=== PATIENT | female | born 1970 | race Caucasian/White ===

== ENCOUNTER 2021-09-11 07:22 | Observation (INO) ==
--- NOTE | 2021-08-07 10:04 | PAT Medication Instructions ---
Medication Instructions Date of Service August 07, 2021 Home Medications acetaminophen 500 mg tablet 1,000 mg PO BID aspirin 81 mg capsule 81 mg PO QAM cholecalciferol (vitamin D3) 50 mcg (2,000 unit) tablet (Vitamin D3) 50 mcg PO QAM meloxicam 15 mg tablet 15 mg PO QPM omeprazole 20 mg tablet,delayed release 20 mg PO QAM ASK your surgeon for instructions meloxicam 15 mg tablet 15 mg PO QPM DO NOT take the morning of surgery cholecalciferol (vitamin D3) 50 mcg (2,000 unit) tablet (Vitamin D3) 50 mcg PO QAM Take morning of surgery With a small sip of water, OTHERWISE NOTHING TO EAT OR DRINK AFTER MIDNIGHT: acetaminophen 500 mg tablet 1,000 mg PO BID aspirin 81 mg capsule 81 mg PO QAM (unless surgeon directed otherwise) omeprazole 20 mg tablet,delayed release 20 mg PO QAM Take evening before surgery acetaminophen 500 mg tablet 1,000 mg PO BID Other Notes If you have any questions please call us at [phone] or [phone] or [phone] or [phone]
--- NOTE | 2021-08-12 11:10 | Anesthesiology Consultation ---
Date of Service August 12, 2021 Assessment & Plan (1) Encounter for pre-operative examination: COVID screening: Per assessment on 08/12: No known COVID-19 positive contacts or current COVID-19 related symptoms. Travel screen- negative x 2+ weeks. Patient vaccinated. Surgeon arranging preop COVID testing. Awaiting results. Chart Review Chart Review: Acceptable Risk for Surgery and Patient seen in Pre Admission Testing Teaching & Discussion Pre-Anesthesia Teaching/Discussion Notes: Instructed NPO after midnight before surgery,except medications with 15 cc of water. Medication instructions provided according to the PAT guidelines. History Surgery Operation Date: 09/11/21 07:15 Proposed Procedures p Left Total Knee Arthroplasty - Albert King DO Height/Weight Height: 5 ft Weight: 77.2 kg Allergies Allergy/AdvReac Type Severity Reaction Status Date / Time Vitamin D Allergy Hives Uncoded 08/12/21 11:27 (with higher doses, tolerates lower doses) Medications Home Medications Medication Instructions Recorded Confirmed Last Taken acetaminophen 500 mg tablet 1,000 mg PO BID 08/06/21 08/06/21 Unknown aspirin 81 mg capsule 81 mg PO QAM 08/06/21 08/06/21 Unknown cholecalciferol (vitamin D3) 50 50 mcg PO QAM 08/06/21 08/06/21 Unknown mcg (2,000 unit) tablet (Vitamin D3) meloxicam 15 mg tablet 15 mg PO QPM 08/06/21 08/06/21 Unknown omeprazole 20 mg tablet,delayed 20 mg PO QAM 08/06/21 08/06/21 Unknown release Past Medical History Medical History (Updated 08/12/21 @ 11:08 by Soila Nieto) GERD (gastroesophageal reflux disease) History of COVID-19 02/2021 - stuffy nose/congestion at the time > resolved Hx of renal calculi Exercise / Class Metabolic Activity II 4-5 Yardwork/Stairs/Walk up hill Past Surgical History Surgical History Hx of hysterectomy partial Hx of wisdom tooth extraction Past Anesthesia History No Hx of Anesthesia Complications and No Family Hx of Anesthesia Complications History of PONV No Hx of PONV and Hx of Motion Sickness (Occasional) Social History Smoking Status: Former smoker Do You Dip or Chew Tobacco: No Smoking End Date: Quit 30 Hx Alcohol Use: Yes alcohol intake frequency: a few times a month Hx Substance Use: No substance use type: does not use Review of Systems Patient denies chest pain, shortness of breath, dyspnea on exertion, fever, chills, cough, wheezing, palpitations. Physical Exam Vital Signs VITALS BP 121/84 P 60 TEMP 98.2 SP02 99%RA RESP 16 PHYSICAL Full cervical extension range of motion. Full TMJ range of motion. TMD 3 finger breaths Mallampati Score 1 Dentition: root canal repair (right upper molar), missing molars Lungs: clear throughout to auscultation Cardiac: regular rate and rhythm, no murmurs noted Spine: normal Carotid arteries: negative bruit Extremities: no edema Lab Results Anesthesia Preop Results Results Anesthesia Widget: WBC 6.21 K/uL (4.8-10.8) 08/12/21 Hgb 13.4 g/dL (12.0-16.0) 08/12/21 Hct 41.3 % (37-47) 08/12/21 Plt 423 K/uL (130-400) H 08/12/21 Na 141 mmol/L (136-145) 08/12/21 K 4.1 mmol/L (3.5-5.1) 08/12/21 Cl 105 mmol/L (98-107) 08/12/21 CO2 30 mmol/L (21-32) 08/12/21 BUN 19 mg/dl (6-23) 08/12/21 Creat 0.78 mg/dl (0.6-1.2) 08/12/21 Glucose Level 92 mg/dl (70-99(Fasting)) 08/12/21 PT 11.1 Seconds (9.0-12.0) 08/12/21 PTT 29.6 Seconds (21.0-31.0) 08/12/21 INR 1.0 (0.9-1.1) 08/12/21 HA1c 5.6 % (4.5-5.6) 08/12/21 Urine Color Yellow 08/12/21 Urine Appearance Clear (Clear) 08/12/21 Urine pH 6.5 (4.5-7.5) 08/12/21 Urine Specific [place] 1.011 (1.000-1.030) 08/12/21 Urine Protein Negative (Negative) 08/12/21 Urine Glucose (UA) Negative (Negative) 08/12/21 Urine Ketones Negative (Negative) 08/12/21 Urine Blood Negative (Negative) 08/12/21 Urine Nitrite Negative (Negative) 08/12/21 Urine Bilirubin Negative (Negative) 08/12/21 Urine Urobilinogen Negative (Negative) 08/12/21 Urine Leukocyte Esterase Negative (Negative) 08/12/21 Blood Type O Positive 08/12/21 Antibody Screen NEGATIVE 08/12/21 Testing Electrocardiogram Date: 08/12/21 Findings: + NSR @ (61) Chest X-Ray Date: 08/12/21 FINDINGS: Frontal and lateral radiographs of the chest demonstrate the cardiomediastinal silhouette to be within normal limits. The lungs are clear of alveolar opacities. There is no evidence for effusion bilaterally. There is no evidence for vascular congestion. There is no acute osseous pathology. IMPRESSION: No acute cardiopulmonary disease.
--- NOTE | 2021-08-23 08:44 | History & Physical Report ---
Date of Service August 23, 2021 date of surgery: 09/11/21 Procedure: Left Total Knee Arthroplasty Surgeon: Albert King Assessment & Plan (1) Arthritis of knee, left: Plan: she would like to proceed with a patient matched Simone left TKA at [facility]. we discussed poss OPJ vs inpatient, she does live alone and would prefer to stay overnight. will then make arrangements to stay at her daughters house for a week or so after. ASA 81mg po bid x 1 month. The risks and benefits have been discussed including, but not limited to, risk of infection, nerve injury, stiffness, loss of motion, failure to improve, etc. Reasonable outcomes and options of treatment were discussed. An explanation of appropriate alternatives to the procedure that may be advantageous were discussed and their risks and benefits, as well as the risks and benefits of not proceeding with treatment. I offered to answer any additional inquiries concerning the treatment involved. All the patient's questions were answered. The patient is agreeable, understanding of the treatment plan and alternatives, and wishes to proceed with the treatment plan. History of Present Illness Chief Complaint: left knee pain Primary Care Provider: NO PCP Torie is a 51 year old who complains of left knee pain, presents for pre-op evaluation prior to a left total knee replacement by Dr King at [facility]. she complains of pain, decreased range of motion, instability and stiffness in her left knee. Currently the patient states that the symptoms are moderate-severe and is described as aching, sharp and throbbing. Her symptoms are aggravated by ascending stairs, daily activities, first steps while awake walking. Prior NSAIDs include Mobic and IBU. she has been treated with previous Durolane (visco) injections in the past without much relief. she has had Pt and sometimes uses a knee brace. Allergies Allergy/AdvReac Type Severity Reaction Status Date / Time Vitamin D Allergy Hives Uncoded 08/12/21 11:27 (with higher doses, tolerates lower doses) Home Medications Medication Instructions Recorded Confirmed Type acetaminophen 500 mg tablet 1,000 mg PO BID 08/06/21 08/06/21 History aspirin 81 mg capsule 81 mg PO QAM 08/06/21 08/06/21 History cholecalciferol (vitamin D3) 50 50 mcg PO QAM 08/06/21 08/06/21 History mcg (2,000 unit) tablet (Vitamin D3) meloxicam 15 mg tablet 15 mg PO QPM 08/06/21 08/06/21 History omeprazole 20 mg tablet,delayed 20 mg PO QAM 08/06/21 08/06/21 History release Past Med/Surg History Medical History GERD (gastroesophageal reflux disease) History of COVID-19 02/2021 - stuffy nose/congestion at the time > resolved Hx of renal calculi Surgical History Hx of hysterectomy partial Hx of wisdom tooth extraction Social History Smoking Status: Former smoker Second Hand Exposure: No; Hx Alcohol Use: Yes Hx Substance Use: No Preferred Language: Chinese Communication Ability: Effective Whip Operator Required: No Beliefs That Will Affect Care: None Current Living Situation: Alone Feels Safe at Home: Yes Assistive Devices: Glasses Review of Systems Review of Systems: All systems reviewed & are unremarkable except as noted in HPI & below Constitutional: no fever, no chills and no sweats Respiratory: no cough and no dyspnea Cardiovascular: no chest pain, no dyspnea and no orthopnea Gastrointestinal: no abdominal pain, no nausea and no vomiting Musculoskeletal: as per Subjective / HPI Physical Exam Physical Exam: HT: 5 ft WT: 77.2 kg Constitutional: WD/WN, vitals as above no acute distress Respiratory: normal respiratory effort, lungs clear to auscultation no respiratory distress, no labored breathing and does not use accessory muscles Cardiovascular: RRR, no murmur, no edema Gastrointestinal (Abdomen): normal bowel sounds, soft, nontender, no hepatosplenomegaly Musculoskeletal: Knee: + knee abnormal to inspection (LEFT KNEE ), + effusion (+1 effusion), + limited ROM of knee (ROM 0/3/110), + knee ROM with crepitation, + joint line tenderness (medial joint line) and + Samantha's sign positive; no deformity, no skin erythema, no ecchymosis, no valgus laxity, no varus laxity, anterior drawer test negative, José Miguel's sign negative and pivot shift test negative Results & Data Results & Data ([facility]) Diagnostic Findings Left Knee X-ray: left knee series confirm advanced degenerative changes to the left knee, greatest medial compartments and patellofemoral joint, showing joint space narrowing, osteophyte formation and subchondral sclerosis. no acute bony pathology noted.
[~2021-09-11 07:22] MED LIST: ACETAMINOPHEN 500 MG TAB PO SCH; BUPIVACAINE 0.5 % 5 MG/1 ML PF 10ML VIAL ONE; CeleBREX 200 MG CAP PO SCH; FAMOTIDINE 20 MG TAB PO SCH; GABAPENTIN 900 MG DOSE PO SCH; LR 500ML BOLUS, THEN 15ML/HR IV SCH; METOCLOPRAMIDE HCL 10 MG TABLET PO SCH; ROPIVACAINE 0.5% 5 MG/ML 30 ML VIAL ONE; ROPIVACAINE 0.5% HCL/PF 150 MG, BUPIVACAINE 0.75% MPF 20 ML, EPINEPHrine 30MG/30ML (OR ... INFIL SCH; TRANEXAMIC ACID 1,000 MG **IV Intra-op IV SCH; TRANEXAMIC ACID 1,000 MG **IV Pre-op IV SCH; ceFAZolin 2000MG 2,000 MG/15 ML SYR IV SCH; dexAMETHasone 4 MG TAB PO SCH
[2021-09-11] MEDS ORDERED: PROPOFOL IV EMULSION 10 MG/ML 20 ML VIAL IV ONE ×2 (07:50→10:28)
[2021-09-11] MEDS ORDERED: MIDAZOLAM HCL 1 MG/ML 2ML VIAL ONE (07:50)
--- NOTE | 2021-09-11 08:35 | History & Physical Bridge Note ---
Date of Service September 11, 2021 History & Physical Bridge Note I have examined the patient, reviewed the History & Physical and in the interval since the performance of the History & Physical I have noted the following changes of clinical significance: no changes noted
[2021-09-11] MEDS ORDERED: ORTHO JOINT ANESTHETIC ONE (09:14)
[2021-09-11] MEDS ORDERED: HYDROmorphone INJ 1 MG/ML SYRINGE IV PRN ×2 (09:22→11:34)
[2021-09-11] MEDS ORDERED: ATROPINE SULFATE 0.1 MG/ML 10ML SYR IV PRN (09:22)
[2021-09-11] MEDS ORDERED: ONDANSETRON INJ 2 MG/ML 2 ML VIAL IV PRN ×2 (09:22→11:34)
[2021-09-11] MEDS ORDERED: ePHEDrine sulfate 50 MG/ML AMP IV PRN (09:22)
[2021-09-11] MEDS ORDERED: KETOROLAC 30 MG/ML VIAL IV PRN (09:22)
[2021-09-11] MEDS ORDERED: ONDANSETRON INJ 2 MG/ML 2 ML VIAL ONE (10:08)
[2021-09-11] MEDS ORDERED: fentaNYL citrate 100 MCG/2 ML VIAL ONE (10:08)
--- NOTE | 2021-09-11 10:54 | Operative Report ---
Post Operative Report Pre & Post Diagnosis Operation Date: 09/11/21 09:20 Pre-Op Diagnosis: Osteoarthritis of Left Knee Post-Op Diagnosis: Osteoarthritis of Left Knee I identified the patient and participated in the time-out.: Yes Procedure Operation Date: 09/11/21 09:20 Actual Procedures p Left Total Knee Arthroplasty(Left) utilizing Simone [employer] persona size 5 femur narrow tibia D polyten patella 28 oval- Albert King DO Surgeon Albert King DO Survey Supervisor CECILIO Foster Estimated Blood Loss 5 Findings Consistent with Post-Op Diagnosis Patient presents with severe end-stage tricompartmental degenerative joint disease left knee nonresponse to conservative management patient had end-stage tricompartmental DJD with eburnated [id number] 10 degree flexion contracture varus alignment subchondral cystic changes marginal osteophytes and moderate to large effusion Specimens Bone and cartilage Drains Medium bore Hemovac Anesthesia Type MAC Spinal Regional Complications none Disposition Accompanied Patient To Recovery: No Disposition: Recovery Room Indications Patient presents with severe end-stage DJD no response to conservative management occluding physical therapy anti-inflammatories relative rest activity modification corticosteroid injection viscosupplementation above intraoperative findings were noted Description of Procedure After proper prepping and draping of the left lower extremity anterior midline incision was made over the region of the extensor extensor mechanism after meticulous hemostasis was obtained and maintained in subcutaneous tissues a medial parapatellar incision was made The patella was subluxed lateralward the medial lateral gutter were cleaned from any hypertrophic synovitis and scar tissue of the distal femoral block was placed and the distal femoral osteotomy cut was made subsequently the chamfers anterior and posterior osteotomy cuts were made utilizing the 4-in-1 block the tibia was subsequently subluxed anteriorward medial and ateral meniscal remnants were excised in their entirety remnants of the anterior and posterior cruciate ligaments were excised in their entirety excellent exposure of the proximal tibia was obtained the tibial osteotomy guide was placed on the proximal tibial osteotomy cut was made once again the knee was irrigated with copious amounts of sterile saline solution the patella was subsequently everted lateralward thickened scar tissue around the patella was removed the patella was subsequently cut utilizing a freehand technique and was drilled prepared for final preparation and placement of patella socially flexion-extension gaps were checked and the equal and symmetric trials were placed to the appropriate femoral and tibial trials with poly-spacer being placed for equal flexion and extension gaps and full range of motion including extension to 0 and flexion to 140 the trial components after having been taken to recovery range of motion was subsequently removed meticulous hemostasis was obtained and maintained subsequently a knee block injection of joint cocktail including ropivacaine 0.5% 150 mg. Bupivacaine 0.5% epinephrine 1-200,030 mL's toradol 30 mg dexamethasone 4 mg ketamine 10 mg clonidine 100 micrograms normal saline solution 30 mg was infiltrated into the soft tissues of the posterior knee medial lateral gutters and periosteal synovium special attention was paid to protect neurovascular structures at all times subsequently trial components having been removed the knee was irrigated with sterile saline solution. debris was removed the proximal tibia was subsequently prepared and was made ready for the placement of the tibial component tibial component was a lso cemented and tamped into position the femoral component was subsequently placed and cemented in the position the patellar component was subsequently cemented in position because hemostasis once again obtained and maintained wound having been thoroughly irrigated with debridement and debridement lavage was performed as well as a medial parapatellar incision closed with #1 Vicryl in interrupted fashion subcutaneous was closed with #2 Vicryl skin was closed with skin clips. PA-C was necessary for prepping and drapping as well as wound closure of deep fascia Sub cutaneous tissue and skin and was necessary for the case. A sterile compressive dressing was placed patient was taken to recovery in stable condition of report dictated by Fernando I attest to the content of the Intraoperative Record and any orders documented therein. Any exceptions are noted below.Due to the complex nature of the procedure, the entire surgery was performed with the operational assistance of CECILIO Foster. The embroidery assistant, under direct supervision, was involved in the actual performance of all aspects of the surgical procedure including hemostasis, tissue retraction and incision, instrument management, patient positioning, and wound closure. I attest to the content of the Intraoperative Record and any orders documented therein. Any exceptions are noted below.
[2021-09-11] MEDS ORDERED: NALOXONE HCL 0.4 MG/1 ML VIAL/CARP IV PRN (11:34)
[2021-09-11] MEDS ORDERED: diphenhydrAMINE Capsule 25 MG CAP PO PRN (11:34)
[2021-09-11] MEDS ORDERED: MAGNESIUM HYDROXIDE SUSP 30 ML UDC PO PRN (11:34)
[2021-09-11] MEDS ORDERED: METOCLOPRAMIDE HCL INJ 5 MG/ML 2 ML VIAL IV PRN (11:34)
[2021-09-11] MEDS ORDERED: oxyCODONE HCL IR 5 MG TAB (IMMEDIATE RELEASE) PO PRN (11:34)
[2021-09-11] MEDS ORDERED: bisacodyL 10 MG SUPP PR PRN (11:34)
--- NOTE | 2021-09-11 12:14 | XRay Report ---
XR knee LT 1 or 2V routine CLINICAL HISTORY: Surgical Post Op TECHNIQUE: 2 views of the left knee were obtained. Comparison: None available at the time of this dictation. FINDINGS: Patient is status post total knee arthroplasty with expected postsurgical changes including soft tiss ue swelling and subcutaneous emphysema. No periarticular lucency or hardware fracture is seen. Joint spaces are well-preserved. No joint effusion is seen. No soft tissue abnormality is seen. IMPRESSION: No evidence of acute osseous injury. ACT 112: Negative or not required by law. Electronically signed by: Jhonny Muñoz M.D. 09/11/2021 12:13 PM
--- NOTE | 2021-09-11 12:48 | Hospitalist Consultation ---
Date of Consultation September 11, 2021 Assessment & Plan (1) Arthritis of knee, left: Nahomi is a 51-year-old female with a history of GERD who is status post TKA of the left knee. Hemodynamically stable, normotensive, doing well. May electively check labs in the morning, appears clinically stable for discharge at this time Left knee arthritis s/p total knee arthroplasty 09/11 DVT prophylaxis, pain control, ambulation recommendations per primary team Pain adequately controlled at this time with Tylenol/Toradol. Has not needed hydromorphone for breakthrough. Received perioperative cefazolin Normotensive postoperatively, heart rate normal GERD May continue PPI daily for stress prophylaxis, patient has intermittent without persistent symptoms When returning home recommend trialing Pepcid 20 mg twice daily as needed rather than PPI as needed No signs of bleeding, no dysphagia Vitamin D deficiency Continue vitamin D3 5000iu daily DVT prophylaxis: Per primary team Diet: Regular Disposition: Medical surgical (2) GERD (gastroesophageal reflux disease): History of Present Illness Reason for Consultation: Postoperative management Attending Physician: Albert King, History of Present Illness Nahomi is a 51-year-old female with a past medical history of left knee arthritis who is seen status post left TKA. Medicine's been consulted for postoperative management of underlying medical conditions. History of GERD, vitamin D deficiency, borderline hyperglycemia/impaired fasting glucose, arthritis. Medications as reviewed below. EKG reviewed, normal sinus rhythm with QTC 414. Denies hx of heart disease, lung disease, stroke, blood clots. No nausea/vomiting No shortness of breath or chest pain Left knee is still numb from surgery, does have a little tingling her toes but is slowly fading after transfer from recovery. Denies pain with inspiration Denies palpitations Endorses GERD to set off by sweet foods, no epigastric pain at present. Reports she only uses her omeprazole as needed at home, has never tried Prilosec as needed Medical History: Reviewed Medications: Reviewed Surgical History: Reviewed Allergies: Reviewed. High dose vitamin D with hives Social History: No tobacco use, rare social alcohol use, no MM use Code Status: Full Code. Yarelis and Susy are daughters, joint DM in an emergencyu Allergies Allergy/AdvReac Type Severity Reaction Status Date / Time Vitamin D Allergy Hives Uncoded 09/11/21 07:50 (with higher doses, tolerates lower doses) Home Medications Medication Instructions Recorded Confirmed Type acetaminophen 500 mg tablet 1,000 mg PO BID 08/06/21 09/11/21 History aspirin 81 mg capsule 81 mg PO QAM 08/06/21 09/11/21 History cholecalciferol (vitamin D3) 50 50 mcg PO QAM 08/06/21 09/11/21 History mcg (2,000 unit) tablet (Vitamin D3) meloxicam 15 mg tablet 15 mg PO QPM 08/06/21 09/11/21 History omeprazole 20 mg tablet,delayed 20 mg PO QAM 08/06/21 09/11/21 History release Patient History Medical History GERD (gastroesophageal reflux disease) History of COVID-19 02/2021 - stuffy nose/congestion at the time > resolved Hx of renal calculi Surgical History Hx of hysterectomy partial Hx of wisdom tooth extraction Social History Smoking Status: Former smoker Smoking End Date: Quit 30; Second Hand Exposure: No; Do You Dip or Chew Tobacco: No; Tobacco Cessation Education Requested by Patient: No Hx Alcohol Use: Yes Hx Substance Use: No Preferred Language: Faroese Communication Ability: Effective Beta Tester Required: No Beliefs That Will Affect Care: None Current Living Situation: Alone Other Information That Helps Us Care for You: No Feels Safe at Home: Yes Safety Concerns: Feels Safe At This Time Assistive Devices: Glasses Review of Systems Review of Systems: All systems reviewed & are unremarkable except as noted in Subjective Physical Exam Physical Exam: General: A&Ox3. NAD. Cooperative. HEENT: Atraumatic, normocephalic. Vision and hearing grossly intact. Pupils equal and reactive to light. Pulm: CTAB A&P. -wheezes, -rales, -rhonchi. Symmetrical chest rise. No increased work of breathing. No respiratory distress. Cardiac: RRR, -mrg. Radial pulses intact and symmetrical. Abdominal: Nontender, nondistended, soft. BS present. Extremities: Left knee in postsurgical dressing and wrap with overlying ice pack, drain intact draining sanguinous material. Sensation soft touch intact in toes bilaterally. Cap refill brisk in hallux bilaterally. PT pulse intact bilaterally. Results & Data Results & Data ([facility]) Vital Signs (Past 12 Hours) Vital Signs Temp Pulse Pulse Resp BP Pulse Ox O2 Del Method 09/11/21 12:10 36.7 C 81 13 125/77 94 Oxymask 09/11/21 12:00 86 19 130/84 94 Oxymask 09/11/21 11:50 90 19 116/90 93 Oxymask 09/11/21 11:40 91 H 15 130/82 93 Oxymask 09/11/21 11:31 36.8 C 99 H 22 139/91 94 Oxymask 09/11/21 07:53 36.8 C 88 20 129/89 95 Room Air O2 Flow Rate 09/11/21 12:10 2 09/11/21 12:00 5 09/11/21 11:50 5 09/11/21 11:40 5 09/11/21 11:31 5 09/11/21 07:53 PG Care Time/CCT Total # of Minutes Spent Total Time Spent with Patient: Total time spent is greater than 50% in coordination of care (as documented) at patient's floor/unit and/or counseling patient: Coding Level of Care Code 58223 Inpt Consult Level 3 Diagnoses Arthritis of knee, left M17.12 GERD (gastroesophageal reflux disease) K21.9
[2021-09-11] MEDS: SODIUM CHLORIDE 0.9% 1000ML 1,000 ML IV SCH ×2 (13:00→21:38)
--- NOTE | 2021-09-11 13:05 | Anesthesiology Progress Note ---
Date of Service September 11, 2021 Anesthesia Post Procedure Vital Signs Vital Signs: Temp Pulse Pulse Resp BP Pulse Ox O2 Del Method 09/11/21 12:59 94 Room Air 09/11/21 12:55 36.8 C 82 16 121/86 96 Nasal Cannula 09/11/21 12:25 36.8 C 81 16 132/83 94 Room Air 09/11/21 12:10 36.7 C 81 13 125/77 94 Oxymask 09/11/21 12:00 86 19 130/84 94 Oxymask 09/11/21 11:50 90 19 116/90 93 Oxymask 09/11/21 11:40 91 H 15 130/82 93 Oxymask 09/11/21 11:31 36.8 C 99 H 22 139/91 94 Oxymask 09/11/21 07:53 36.8 C 88 20 129/89 95 Room Air O2 Flow Rate 09/11/21 12:59 09/11/21 12:55 2 09/11/21 12:25 09/11/21 12:10 2 09/11/21 12:00 5 09/11/21 11:50 5 09/11/21 11:40 5 09/11/21 11:31 5 09/11/21 07:53 Pain Intensity Left Knee: Pain Intensity: 8 Transfer of Care Handoff Completed per policy Notes Mental Status: alert / awake / arousable Patient Amnestic to Procedure: Yes Nausea / Vomiting: adequately controlled Pain: adequately controlled Airway Patency, RR, SpO2: stable & adequate BP & HR: stable & adequate Hydration State: stable & adequate Neuraxial Anesthesia: was administered and sensory block is resolving Anesthetic Complications: no major complications apparent
[2021-09-11] MEDS: KETOROLAC TROMETHAMINE 15 MG/ML VIAL IV SCH ×2 (13:53→19:07)
[2021-09-11] MEDS: ACETAMINOPHEN 500 MG TAB PO SCH ×2 (13:55→21:41)
[2021-09-11] MEDS: ceFAZolin 2000MG 2,000 MG/15 ML SYR IV SCH (18:25)
[2021-09-11] MEDS: DOCUSATE SODIUM 100 MG CAP PO SCH (19:08)
[2021-09-11] MEDS: ASPIRIN 81 MG ECTAB PO SCH (19:09)
[2021-09-11] MEDS ORDERED: SENNA 8.6 MG TAB PO SCH (21:00)
[2021-09-12] MEDS: KETOROLAC TROMETHAMINE 15 MG/ML VIAL IV SCH ×2 (00:07→06:05)
[2021-09-12] MEDS: ceFAZolin 2000MG 2,000 MG/15 ML SYR IV SCH (04:15)
[2021-09-12] MEDS: ACETAMINOPHEN 500 MG TAB PO SCH (06:05)
--- NOTE | 2021-09-12 07:23 | Orthopedic Progress Note ---
Date of Service September 12, 2021 Assessment & Plan (1) Arthritis of knee, left: Plan: POD #1 s/p left TKA pt/ot dvt proph with JIMY/SCD/ASA plan for d/c home with OPPT Admission and Anticipated Discharge Date Admission Date: September 11, 2021 Subjective POD #1 s/p Left TKA Review of Systems Constitutional: no fever, no chills and no sweats Respiratory: no cough and no dyspnea Cardiovascular: no chest pain and no dyspnea Gastrointestinal: no abdominal pain, no nausea and no vomiting Physical Exam Physical Exam: Vital Signs Temp 36.6 C 09/12/21 04:00 Pulse 72 09/12/21 04:00 Resp 18 09/12/21 04:00 BP 126/80 09/12/21 04:00 Pulse Ox 96 09/12/21 04:00 O2 Del Method 09/12/21 04:00 O2 Flow Rate 2 09/11/21 12:55 Intake & Output 09/11/21 09/12/21 09/12/21 18:59 06:59 18:59 Intake Total 1600 / 3200 1600 / 3200 Output Total 1580 / 3330 1750 / 3330 Balance 20 / -130 -150 / -130 Weight 78.3 kg Intake: IV 200 / 1200 1000 / 1200 Lactated Ringe r's 1,000 ml @ 15 0 / 0 mls/hr IV .Q24 H ONELIA Rx#: [id number] Sodium Chlorid e 0.9% 1000ML 1, 1000 / 1000 000 ml @ 100 m ls/hr IV .Q10H ONELIA Rx#:[id number] Tranexamic Aci d / 0.7% NaCl 1, 200 / 200 000 mg In 100 ml @ 600 mls/hr IV TODAY@0600 ONELIA Rx#:[id number] IV Perioperative 1100 / 1100 Oral 300 / 900 600 / 900 Output: Urine 1550 / 3150 1600 / 3150 Estimated Blood Loss 5 / 5 Drain Output 25 / 175 150 / 175 Left Knee 25 / 175 150 / 175 Other: # Unmeasured Voi ds 1 Weight Measureme nt Method Standing Scale Musculoskeletal: Left Leg: NVDI, calf SNT, negative carolin sign. DP palpable, able to wiggle toes/ankle movement without difficulty. dressing clean dry and intact. Results & Data ([facility]) Vital Signs (Past 12 Hours) Vital Signs Temp Pulse Resp BP Pulse Ox O2 Del Method 09/12/21 04:00 36.6 C 72 18 126/80 96 Room Air 09/12/21 00:13 36.5 C 66 18 123/74 95 Room Air 09/11/21 21:08 36.7 C 75 18 152/94 H 94 Room Air
[2021-09-12 07:42] LABS: Hematocrit (blood only) 37.8 % (34.1-44.9); Hemoglobin 12.6 g/dl (12.0-16.0); Mean Corpuscular Hemoglobin 30.6 pg (25.0-34.0); Mean Corpuscular Hgb Conc 33.3 g/dL (32.0-36.0); Mean Corpuscular Volume 91.7 fL (80.0-100.0); Mean Platelet Volume 9.6 fL (9.4-12.3); Platelet Count 415 K/uL (130-400); RDW Coefficient of Variation 12.9 % (11.5-14.5); RDW Standard Deviation 42.7 fL (36.4-46.3); Red Blood Count 4.12 M/uL (3.93-5.22); White Blood Count 16.21 K/ul (4.8-10.8)
[2021-09-12] MEDS: ASPIRIN 81 MG ECTAB PO SCH (07:48)
[2021-09-12] MEDS: DOCUSATE SODIUM 100 MG CAP PO SCH (07:50)
[2021-09-12 08:12] LABS: BUN Creatinine Ratio 19.7 (10-20); Calcium 9.1 mg/dl (8.5-10.1); Creatinine Clr Calc Pharmacy 79.2 ml/min; Est GFR (African American) 103.8 ml/min; Est GFR (Non-African American) 89.6 ml/min
[2021-09-12] MEDS ORDERED: MULTIVITAMIN TAB PO SCH (09:00)
[2021-09-12] MEDS ORDERED: CeleBREX 200 MG CAP PO SCH (09:00)
[2021-09-12] MEDS ORDERED: CHOLECALCIFEROL 1,000 UNITS 25 MCG TAB PO SCH (09:00)
--- NOTE | 2021-09-13 07:55 | Discharge Summary ---
Date of Service date of discharge: September 12, 2021 date of admission: 09-11-21 Admission HPI Per Admitting Provider Torie is a 51 year old who complains of left knee pain, presents for pre-op evaluation prior to a left total knee replacement by Dr Guerrero at [facility]. she complains of pain, decreased range of motion, instability and stiffness in her left knee. Currently the patient states that the symptoms are moderate-severe and is described as aching, sharp and throbbing. Her symptoms are aggravated by ascending stairs, daily activities, first steps while awake walking. Prior NSAIDs include Mobic and IBU. she has been treated with previous Durolane (visco) injections in the past without much relief. she has had Pt and sometimes uses a knee brace. Principal Diagnosis left knee arthritis Discharge Exam Musculoskeletal left knee: NVDI, calf SNT, negative carolin sign. DP palpable, able to wiggle toes/ankle movement without difficulty. BRENNAN dressing clean dry and intact. expected post-operative bruising noted. Discharge Data Allergies Allergy/AdvReac Type Severity Reaction Status Date / Time Vitamin D Allergy Hives Uncoded 09/11/21 07:50 (with higher doses, tolerates lower doses) Consultations 09/06/21 17:41 Consult Hospitalist Routine Procedures Performed Operation Date: 09/11/21 09:20 Actual Procedures p Left Total Knee Arthroplasty(Left) - Albert Guerrero, Ordered Studies 09/11/21 05:00 US - OR guided needle placemen Routine Hospital Course (1) Arthritis of knee, left: POD #1 s/p left TKA pt/ot dvt proph with JIMY/SCD/ASA plan for d/c home with OPPT Total Time Total Time Spent Total Time Spent (In Minutes): 20 Discharge Plan Discharge Items Patient Disposition: Home - Self-Care Reason For Visit: Osteoarthritis Knee Left Discharge Diagnosis: LEFT TOTAL KNEE REPLACEMENT Activity: Per Instructions section Weightbearing Comment: WBAT WITH WALKER Non-emergency contact: Surgeon Call non-emergency contact if: you have any medication questions, your temperature is above 101, your wound has increased redness, your wound has increased drainage and your wound pain has increased Follow-up/Referrals: Halima Oneil PAAntC [Primary Care Provider] - Diet: Regular Addtl Attending Provider Instructions: ACTIVITY RECOMMENDATIONS: SELF CARE INSTRUCTIONS AFTER TOTAL KNEE REPLACEMENT A. You may need to continue a physical therapy program after discharge from the hospital. There are several options available to you. Your doctor will assist you in selecting the best one for you. 1. An out-patient facility 2 to 3 times a week for therapy or home therapy. 2. Continue working on all exercises taught to you in the hospital. Your goals should be to increase bending of your knee to 90 degrees and beyond and to fully straighten your knee. B. You may progress at your own pace from walking with a walker or crutches to a cane; then to no assistive devices. C. Make walking a part of your daily routine. Be up as much as comfortable with rest periods throughout the day. Rest with leg elevation is very important. Use the ice wrap frequently for the first 3-4 weeks. D. There are no restrictions on activities. You may ride in a car, shop, participate in assistant press operator and all social activities. E. Wear the long elastic stockings (JIMY hose) 20 hours a day for 2 weeks after surgery. They can be removed several times a day for laundering and for a bath. F. You may shower, no tub baths until cleared by your doctor. SPECIAL CARE INSTRUCTIONS: VERY IMPORTANT TO READ AND REVIEW A. There are a few signs you need to watch for after you are home. Call [facility] if you notice any of the followin. Increased severe knee pain. Some pain is expected especially when you exercise. 2. Increased swelling in your leg or knee; pain or swelling of the calf muscle in either lower leg. 3. Any fluid drainage from the incision. 4. Shortness of breath or chest pain. B. Please call [facility] at if you have any concerns or questions about your operation or recovery. The doctor or his nurse will return your call promptly. C. You must take antibiotics before dental work, bladder, bowel or other surgery. Your doctor will provide you with a permanent care to carry describing this precaution. IMPORTANT: * REMEMBER TO TAKE ASPIRIN, 81 MG, TWICE DAILY FOR 4 WEEKS UNLESS OTHERWISE DIRECTED. THIS IS YOUR BLOOD THINNER. * HIGH RISK PATIENTS MAY BE PRESCRIBED A STRONGER BLOOD THINNER. THIS WILL BE PROVIDED AT DISCHARGE. * CALL IF INCREASED PAIN, REDNESS, DRAINAGE OR FEVER GREATER THAT 101. * WEAR JIMY HOSE 20 HOURS PER DAY FOR 2 WEEKS. * BRENNAN Dressing- This is a large suction dressing covering your incision. This will help pull any excess drainage from the wound and allow your incision to heal properly. You may shower with this if you can keep the unit outside of the shower. If any bleeding or leakage is noted please call your doctor's office. This will remain on your incision for 7 days and then should be removed. This can be done yourself or by the home nursing staff if applicable. The entire unit is disposable once removed. Once removed, keep incision clean and dry. If redness or drainage is noted, please call your surgeon. ONCE BRENNAN IS REMOVED, FOLLOW THESE INSTRUCTIONS: DERMABOND Prineo- This is a mesh tape dressing that is covered with glue. It should remain in place until the incision is properly healed, usually 10-14 days. This dressing is designed to naturally slough off. You may trim the excess mesh tape as it peels off. Incision may be briefly wet in a shower. Dry immediately by blotting with a clean, dry towel. Do not bath or swim until instructed by your doctor. Do not scratch, rub, or pick at the dressing. Do not apply any topical ointments or lotions until dressing is completely removed and/or instructed by your doctor. There may be a small piece of suture material at one end of your incision. Do not pull or trim this. If it is bothersome or catching on clothing, you may cover it with a band-aid. IF INCISION IS LEAKING THROUGH DRESSING, CALL THE OFFICE . FOLLOW UP VISIT: If appointment is not already scheduled: Please call [facility] to make a follow-up appointment for 2 weeks after your surgery at . Pending Studies at Discharge: No Stand-Alone Forms: My [facility] FUJIAN HAIYUAN, Smoking Cessation Medications and DC Order Prescriptions: New celecoxib [Celebrex] 200 mg Capsule 200 mg PO BID 30 Days Qty: 60 0RF aspirin 81 mg Tablet,Delayed Release (Dr/Ec) 81 mg PO BID 30 Days Qty: 60 0RF acetaminophen [Tylenol Extra Strength] 500 mg Tablet 1,000 mg PO Q8 21 Days Qty: 126 0RF oxycodone 5 mg Tablet 5 - 10 mg PO Q6H PRN (Reason: pain) Qty: 30 0RF Rx Instructions: ongoing therapy, supervising dr tico guerrero. max 6 tabs in 24hours docusate sodium 100 mg Capsule 100 mg PO BID 10 Days Qty: 20 0RF cefadroxil 500 mg capsule 500 mg PO BID 14 Days Qty: 28 0RF Continued omeprazole 20 mg Tablet,Delayed Release (Dr/Ec) 20 mg PO QAM cholecalciferol (vitamin D3) [Vitamin D3] 50 mcg (2,000 unit) Tablet 50 mcg PO QAM Discontinued meloxicam 15 mg Tablet 15 mg PO QPM acetaminophen [Tylenol Ex Str Rapid Release] 500 mg Tablet 1,000 mg PO BID aspirin 81 mg Capsule 81 mg PO QAM Discharge Orders: Discharge Order (Routine); Ordered 09/12/21 Ordered By: Manfred Helm/Other Patient Handouts: Osteoarthritis Daily Life Tips Admission Data Admit Date/Time: 09/11/21 11:34 Attending Provider: Albert Guerrero Admit Provider: Albert Guerrero Primary Care Provider: Halima Oneil Other Providers: Junior Martinez Other Interventions: Discharge Summary Assessment (RN) Last Done: 09/12/21 10:57
== END 2021-09-12 11:59 | disposition home or self-care (01) ==
LOC: 3N 07:22 → ASU 07:22

== ENCOUNTER 2021-12-03 07:09 | Observation (INO) ==
--- NOTE | 2021-11-25 08:53 | History & Physical Report ---
Date of Service November 25, 2021 date of surgery: 12/03/21 Procedure: Right Total Knee Arthroplasty Surgeon: Albert King Assessment & Plan (1) Arthritis of right knee: Plan: she would like to proceed with a patient matched Simone right TKA at [facility]. will make arrangements to stay at her daughters house for a week or so after. ASA 81mg po bid x 1 month. The risks and benefits have been discussed including, but not limited to, risk of infection, nerve injury, stiffness, loss of motion, failure to improve, etc. Reasonable outcomes and options of treatment were discussed. An explanation of appropriate alternatives to the procedure that may be advantageous were discussed and their risks and benefits, as well as the risks and benefits of not proceeding with treatment. I offered to answer any additional inquiries concerning the treatment involved. All the patient's questions were answered. The patient is agreeable, understanding of the treatment plan and alternatives, and wishes to proceed with the treatment plan. History of Present Illness Chief Complaint: Right knee pain Primary Care Provider: Halima Oneil Torie is a 51 year old who complains of right knee pain, presents for pre-op evaluation prior to a right total knee replacement by Dr King at [facility]. she complains of pain, decreased range of motion and stiffness in her right knee. Currently the patient states that the symptoms are moderate-severe and is described as aching, sharp and throbbing, rated as 6/10. Her symptoms are aggravated by ascending stairs, daily activities, first steps while awake walking. Prior NSAIDs include Mobic and IBU. she has been treated with previous Durolane (visco) injections in the past without much relief. she has had Pt and sometimes uses a knee brace. she underwent a left TKA in August 2021. Allergies Allergy/AdvReac Type Severity Reaction Status Date / Time Vitamin D Allergy Hives Uncoded 09/11/21 07:50 (with higher doses, tolerates lower doses) Home Medications Medication Instructions Recorded Confirmed Type cholecalciferol (vitamin D3) 50 50 mcg PO QAM 08/06/21 09/11/21 History mcg (2,000 unit) tablet (Vitamin D3) omeprazole 20 mg tablet,delayed 20 mg PO QAM 08/06/21 09/11/21 History release oxycodone 5 mg tablet 5 - 10 mg PO Q6H PRN pain #30 tabs 09/12/21 Rx Past Med/Surg History Medical History GERD (gastroesophageal reflux disease) History of COVID-19 02/2021 - stuffy nose/congestion at the time > resolved Hx of renal calculi Surgical History Hx of hysterectomy partial Hx of wisdom tooth extraction Social History Smoking Status: Former smoker Second Hand Exposure: No; Hx Alcohol Use: Yes Hx Substance Use: No Preferred Language: Georgian Communication Ability: Effective University Relations Director Required: No Beliefs That Will Affect Care: None Current Living Situation: Alone Feels Safe at Home: Yes Assistive Devices: None Review of Systems Constitutional: no fever, no chills and no sweats Respiratory: no cough and no dyspnea Cardiovascular: no chest pain and no dyspnea Gastrointestinal: no abdominal pain, no nausea and no vomiting Physical Exam Physical Exam: HT: 5 ft WT: 77.2 kg Constitutional: WD/WN, vitals as above no acute distress Respiratory: normal respiratory effort, lungs clear to auscultation no respiratory distress, no labored breathing and does not use accessory muscles Cardiovascular: RRR, no murmur, no edema Gastrointestinal (Abdomen): normal bowel sounds, soft, nontender, no hepatospl enomegaly Musculoskeletal: Right Knee Physical Exam ambulates with a limp, there is no erythema, warmth, +1 effusion, tenderness over the medial joint line and anterior knee joint. negative patellar apprehension , mild crepitation with motion, stephanie's negative, posterior drawer negative. positive mcmurrays medially, negative anterior drawer, knee stable with valgus/varus stress. no extensor lag. pain with active range of motion, AROM 0/3/110, Passive ROM 0/3/115. No pain with active/passive ROM of ankle. Lower Extremity Strength normal. Lower Extremity Neuro-vascular is normal Results & Data Results & Data ([facility]) Diagnostic Findings Right Knee X-ray: Right knee series showing advanced degenerative changes to the right knee, narrowing of the medial compartment and patello-femoral joint with patellar spurring noted, findings showing joint space narrowing of the medial compartment and patello-femoral joint, osteophyte formation and subchondral sclerosis noted. overall varus alignment. no acute bony pathology noted.
--- NOTE | 2021-11-25 15:56 | Anesthesiology Consultation ---
Date of Service November 25, 2021 Assessment & Plan (1) Encounter for pre-operative examination: - COVID screening: Per assessment on 11/25: No known COVID-19 positive contacts or current COVID-19 related symptoms. Travel screen negative. Patient vaccinated. At surgeon discretion if preop Covid testing being done. - PCP (11/05/21): "pt is considered low risk for surgery and may proceed as scheduled" Chart Review Chart Review: Acceptable Risk for Surgery and Patient NOT seen in Pre Admission Testing History Surgery Operation Date: 12/03/21 11:25 Proposed Procedures p Right Total Knee Arthroplasty - Albert King DO Height/Weight Height: 5 ft Weight: 75.296 kg Allergies Allergy/AdvReac Type Severity Reaction Status Date / Time cholecalciferol (vitamin D3) Allergy Mild Hives Verified 11/25/21 15:38 Medications Home Medications Medication Instructions Recorded Confirmed Last Taken cholecalciferol (vitamin D3) 50 50 mcg PO QAM 08/06/21 11/25/21 09/10/21 13:00 mcg (2,000 unit) tablet (Vitamin D3) omeprazole 20 mg tablet,delayed 20 mg PO QAM 08/06/21 11/25/21 09/11/21 05:30 release Past Medical History Medical History (Updated 11/25/21 @ 08:57 by Manfred Perez PA-C) GERD (gastroesophageal reflux disease) History of COVID-19 02/2021 - stuffy nose/congestion at the time > resolved Hx of renal calculi Past Family History Family History (Updated 11/25/21 @ 15:23 by Melissa Knox) Mother Liver cancer Diabetes Myocardial infarction Father Myocardial infarction Brother Myocardial infarction Grandfather (Maternal) Myocardial infarction Grandfather (Paternal) Myocardial infarction Grandmother (Paternal) Myocardial infarction Grandmother (Maternal) Myocardial infarction Family/Other Myocardial infarction Past Surgical History Surgical History (Updated 11/25/21 @ 15:16 by Melissa Knox) History of total left knee replacement Hx of hysterectomy partial Hx of wisdom tooth extraction Social History Smoking Status: Former smoker tobacco type: cigarettes Do You Dip or Chew Tobacco: No Smoking End Date: over 20 years ago Hx Alcohol Use: Yes alcohol intake frequency: a few times a month Hx Substance Use: No substance use type: does not use Testing Laboratory Results 9/12/22 WBC 4.62 H/H 13.7/41.0 PLATELETS 435 SODIUM 141 POTASSIUM 4.3 CHLORIDE 106 CO2 26.9 BUN 21 CREATININE 0.72 GLUCOSE 97 Electrocardiogram Date: 08/12/21 Findings: + NSR @ (61) Chest X-Ray Date: 08/12/21 FINDINGS: Frontal and lateral radiographs of the chest demonstrate the cardiomediastinal silhouette to be within normal limits. The lungs are clear of alveolar opacities. There is no evidence for effusion bilaterally. There is no evidence for vascular congestion. There is no acute osseous pathology. IMPRESSION: No acute cardiopulmonary disease.
[~2021-12-03 07:09] MED LIST changes: +EPINEPHrine INJ 1 MG/ML AMP ONE; -ROPIVACAINE 0.5% HCL/PF 150 MG, BUPIVACAINE 0.75% MPF 20 ML, EPINEPHrine 30MG/30ML (OR ... INFIL SCH; +ROPIVACAINE 0.5% HCL/PF 150 MG, BUPIVACAINE 0.75% MPF 20 ML, EPINEPHrine 30MG/30ML (OR ... INSTIL SCH
[2021-12-03 07:43] LABS: Appearance Urine Cloudy (Clear); Bacteria Urine Automated 2+ (Negative); Bilirubin Urine Negative (Negative); Blood Urine 2+ (Negative); Color Urine Yellow; Epithelial Cell Urine Auto >30 /lpf (0-5); Glucose Urine UA Negative (Negative); Ketones Urine Negative (Negative); Leukocyte Esterase Urine 3+ (Negative); Nitrite Urine Negative (Negative); Protein Urine Trace (Negative); RBC Urine Automated >30 /hpf (0-4); Specific Gravity Urine 1.023 (1.000-1.030); Urobilinogen Urine Negative (Negative); WBC Urine Automated >30 /hpf (0-5); pH Urine 5.5 (4.5-7.5)
[2021-12-03] MEDS ORDERED: LIDOCAINE 2% 2 ML VIAL/AMP(20MG/ML) INFIL ONE (07:50)
[2021-12-03] MEDS ORDERED: MIDAZOLAM HCL 1 MG/ML 2ML VIAL ONE (07:50)
[2021-12-03] MEDS ORDERED: PROPOFOL IV EMULSION 10 MG/ML 20 ML VIAL IV ONE (07:50)
[2021-12-03] MEDS ORDERED: ONDANSETRON INJ 2 MG/ML 2 ML VIAL ONE (07:50)
[2021-12-03 07:54] LABS: Partial Thromboplastin Ratio 1.1; Partial Thromboplastin Time 30.3 Seconds (21.0-31.0); Prothrombin Time 11.1 Seconds (9.0-12.0)
--- NOTE | 2021-12-03 08:48 | History & Physical Bridge Note ---
Date of Service December 03, 2021 History & Physical Bridge Note I have examined the patient, reviewed the History & Physical and in the interval since the performance of the History & Physical I have noted the following changes of clinical significance: no changes noted
[2021-12-03] MEDS ORDERED: ORTHO JOINT ANESTHETIC ONE (09:28)
--- NOTE | 2021-12-03 11:10 | Operative Report ---
Post Operative Report Pre & Post Diagnosis Operation Date: 12/03/21 09:35 Pre-Op Diagnosis: Right Knee Osteoarthritis Post-Op Diagnosis: Right Knee Osteoarthritis I identified the patient and participated in the time-out.: Yes Procedure Operation Date: 12/03/21 09:35 Actual Procedures p Right Total Knee Arthroplasty utilizing Simone Biomet persona size femur 5 narrow tibia C polythirteen medial constrained patella 28 oval (Right) - Albert King DO Surgeon Albert King DO Shingle Shearing Machine Operator CECILIO Foster Estimated Blood Loss 5 Findings Consistent with Post-Op Diagnosis Patient resents with severe end-stage tricompartmental degenerative joint disease right knee with varus alignment subchondral sclerosis marginal osteophytes subchondral cystic changes moderate to large effusion Specimens Bone and cartilage Drains Medium bore Hemovac Anesthesia Type MAC Spinal Regional Complications none Disposition Accompanied Patient To Recovery: No Disposition: Recovery Room Indications Patient presents with severe end-stage DJD after having failed attempted conservative management occluding physical therapy anti-inflammatories relative rest activity modification corticosteroid injection viscosupplementation above intraoperative findings were noted. Description of Procedure After proper prepping and draping of the Right lower extremity anterior midline incision was made over the region of the extensor extensor mechanism after meticulous hemostasis was obtained and maintained in subcutaneous tissues a medial parapatellar incision was made The patella was subluxed lateralward the medial lateral gutter were cleaned from any hypertrophic synovitis and scar tissue of the distal femoral block was placed and the distal femoral osteotomy cut was made subsequently the chamfers anterior and posterior osteotomy cuts were made utilizing the 4-in-1 block the tibia was subsequently subluxed anteriorward medial and ateral meniscal remnants were excised in their entirety remnants of the anterior and posterior cruciate ligaments were excised in their entirety excellent exposure of the proximal tibia was obtained the tibial osteotomy guide was placed on the proximal tibial osteotomy cut was made once again the knee was irrigated with copious amounts of sterile saline solution the patella was subsequently everted lateralward thickened scar tissue around the patella was removed the patella was subsequently cut utilizing a freehand technique and was drilled prepared for final preparation and placement of patella socially flexion-extension gaps were checked and the equal and symmetric trials were placed to the appropriate femoral and tibial trials with poly-spacer being placed for equal flexion and extension gaps and full range of motion including extension to 0 and flexion to 140 the trial components after having been taken to recovery range of motion was subsequently removed meticulous hemostasis was obtained and maintained subsequently a knee block injection of joint cocktail including ropivacaine 0.5% 150 mg. Bupivacaine 0.5% epinephrine 1-200,030 mL's toradol 30 mg dexamethasone 4 mg ketamine 10 mg clonidine 100 micrograms normal saline solution 30 mg was infiltrated into the soft tissues of the posterior knee medial lateral gutters and periosteal synovium special attention was paid to protect neurovascular structures at all times subsequently trial components having been removed the knee was irrigated with sterile saline solution. debris was removed the proximal tibia was subsequently prepared and was made ready for the placement of the tibial component tibial component was also cemented and tamped into position the femoral component was subsequently placed and cemented in the position the patellar component was subsequently cemented in position because hemostasis once again obtained and maintained wound having been thoroughly irrigated with debridement and debridement lavage was performed as well as a medial parapatellar incision closed with #1 Vicryl in interrupted fashion subcutaneous was closed with #2 Vicryl skin was closed with skin clips. PA-C was necessary for prepping and drapping as well as wound closure of deep fascia Sub cutaneous tissue and skin and was necessary for the case. A sterile compressive dressing was placed patient was taken to recovery in stable condition of report dictated by Fernando I attest to the content of the Intraoperative Record and any orders documented therein. Any exceptions are noted below.Due to the complex nature of the procedure, the entire surgery was performed with the operational assistance of CECILIO Foster. The assistant counsel, under direct supervision, was involved in the actual performance of all aspects of the surgical procedure including hemostasis, tissue retraction and incision, instrument management, patient positioning, and wound closure. I attest to the content of the Intraoperative Record and any orders documented therein. Any exceptions are noted below.
[2021-12-03] MEDS ORDERED: NALOXONE HCL 0.4 MG/1 ML VIAL/CARP IV PRN ×2 (11:31→13:46)
[2021-12-03] MEDS ORDERED: HYDROmorphone INJ 1 MG/ML SYRINGE IV PRN ×2 (11:31→13:46)
[2021-12-03] MEDS ORDERED: ATROPINE SULFATE 0.1 MG/ML 10ML SYR IV PRN (11:31)
[2021-12-03] MEDS ORDERED: FLUMAZENIL 0.1 MG/1 ML 10 ML VIAL IV PRN (11:31)
[2021-12-03] MEDS ORDERED: PROMETHAZINE HCL 12.5 MG in SODIUM CHLORIDE 0.9% 50 ML IV PRN (11:31)
[2021-12-03] MEDS ORDERED: fentaNYL citrate 100 MCG/2 ML VIAL IV PRN (11:31)
[2021-12-03] MEDS ORDERED: ONDANSETRON INJ 2 MG/ML 2 ML VIAL IV PRN ×2 (11:31→13:46)
[2021-12-03] MEDS ORDERED: ePHEDrine sulfate 50 MG/ML AMP IV PRN (11:31)
--- NOTE | 2021-12-03 13:12 | Anesthesiology Progress Note ---
Date of Service December 03, 2021 Anesthesia Post Procedure Vital Signs Vital Signs: Temp Pulse Pulse Resp BP Pulse Ox O2 Del Method 12/03/21 12:55 79 20 114/72 98 Room Air 12/03/21 12:45 62 14 122/76 96 Room Air 12/03/21 12:35 69 12 125/72 96 Room Air 12/03/21 12:25 67 12 118/73 97 Room Air 12/03/21 12:15 74 16 125/80 98 Room Air 12/03/21 12:05 66 14 125/75 100 Oxymask 12/03/21 11:55 71 12 114/78 100 Oxymask 12/03/21 11:45 36.5 C 76 16 120/72 99 Oxymask 12/03/21 07:45 36.9 C 78 20 139/74 97 Room Air O2 Flow Rate 12/03/21 12:55 12/03/21 12:45 12/03/21 12:35 12/03/21 12:25 12/03/21 12:15 12/03/21 12:05 9 12/03/21 11:55 9 12/03/21 11:45 9 12/03/21 07:45 Transfer of Care Handoff Completed per policy Notes Mental Status: alert / awake / arousable Patient Amnestic to Procedure: Yes Nausea / Vomiting: adequately controlled Pain: adequately controlled Airway Patency, RR, SpO2: stable & adequate BP & HR: stable & adequate Hydration State: stable & adequate Neuraxial Anesthesia: was administered and sensory block is resolving Anesthetic Complications: no major complications apparent
--- NOTE | 2021-12-03 13:14 | Anesthesiology Progress Note ---
Date of Service December 03, 2021 Anesthesia Post Procedure Vital Signs Vital Signs: Temp Pulse Pulse Resp BP Pulse Ox O2 Del Method 12/03/21 13:05 36.5 C 71 16 122/75 96 Room Air 12/03/21 12:55 79 20 114/72 98 Room Air 12/03/21 12:45 62 14 122/76 96 Room Air 12/03/21 12:35 69 12 125/72 96 Room Air 12/03/21 12:25 67 12 118/73 97 Room Air 12/03/21 12:15 74 16 125/80 98 Room Air 12/03/21 12:05 66 14 125/75 100 Oxymask 12/03/21 11:55 71 12 114/78 100 Oxymask 12/03/21 11:45 36.5 C 76 16 120/72 99 Oxymask 12/03/21 07:45 36.9 C 78 20 139/74 97 Room Air O2 Flow Rate 12/03/21 13:05 12/03/21 12:55 12/03/21 12:45 12/03/21 12:35 12/03/21 12:25 12/03/21 12:15 12/03/21 12:05 9 12/03/21 11:55 9 12/03/21 11:45 9 12/03/21 07:45 Transfer of Care Handoff Completed per policy Notes Mental Status: alert / awake / arousable Patient Amnestic to Procedure: Yes Nausea / Vomiting: adequately controlled Pain: adequately controlled Airway Patency, RR, SpO2: stable & adequate BP & HR: stable & adequate Hydration State: stable & adequate Neuraxial Anesthesia: was administered and sensory block is resolving Anesthetic Complications: no major complications apparent
--- NOTE | 2021-12-03 13:35 | XRay Report ---
XR knee RT 1 or 2V routine CLINICAL HISTORY: Postoperative evaluation. COMPARISON: None FINDINGS: Alignment of the total right knee arthroplasty is anatomic. No periprosthetic fracture or unexpected radiopaque foreign body. Surgical drains are in place. IMPRESSION: Expected findings following total right knee arthroplasty. ACT 112: Negative or not required by law. Electronically signed by: Mitesh Correa M.D. 12/03/2021 1:34 PM
[2021-12-03] MEDS ORDERED: MAGNESIUM HYDROXIDE SUSP 30 ML UDC PO PRN (13:46)
[2021-12-03] MEDS ORDERED: diphenhydrAMINE Capsule 25 MG CAP PO PRN (13:46)
[2021-12-03] MEDS ORDERED: bisacodyL 10 MG SUPP PR PRN (13:46)
[2021-12-03] MEDS ORDERED: METOCLOPRAMIDE HCL INJ 5 MG/ML 2 ML VIAL IV PRN (13:46)
[2021-12-03] MEDS ORDERED: SODIUM CHLORIDE 0.9% 1000ML 1,000 ML IV SCH (13:46)
[2021-12-03] MEDS: ACETAMINOPHEN 500 MG TAB PO SCH ×2 (14:14→21:20)
[2021-12-03] MEDS: KETOROLAC TROMETHAMINE 15 MG/ML VIAL IV SCH ×2 (14:53→20:32)
[2021-12-03] MEDS: ceFAZolin 2000MG 2,000 MG/15 ML SYR IV SCH (18:11)
[2021-12-03] MEDS: oxyCODONE HCL IR 5 MG TAB (IMMEDIATE RELEASE) PO PRN (18:13)
[2021-12-03] MEDS: DOCUSATE SODIUM 100 MG CAP PO SCH (20:16)
[2021-12-03] MEDS ORDERED: SENNA 8.6 MG TAB PO SCH (21:00)
[2021-12-03] MEDS: ASPIRIN 81 MG ECTAB PO SCH (21:19)
[2021-12-04] MEDS: ceFAZolin 2000MG 2,000 MG/15 ML SYR IV SCH (02:20)
[2021-12-04] MEDS: KETOROLAC TROMETHAMINE 15 MG/ML VIAL IV SCH ×2 (02:20→08:06)
[2021-12-04] MEDS: ACETAMINOPHEN 500 MG TAB PO SCH (05:34)
[2021-12-04] MEDS: oxyCODONE HCL IR 5 MG TAB (IMMEDIATE RELEASE) PO PRN ×2 (05:56→11:58)
[2021-12-04 06:45] LABS: Hematocrit (blood only) 34.6 % (34.1-44.9); Hemoglobin 11.8 g/dl (12.0-16.0); Mean Corpuscular Hgb Conc 34.1 g/dL (32.0-36.0); Mean Corpuscular Volume 90.8 fL (80.0-100.0); Mean Platelet Volume 9.6 fL (9.4-12.3); Platelet Count 372 K/uL (130-400); RDW Coefficient of Variation 11.2 % (11.5-14.5); RDW Standard Deviation 37.1 fL (36.4-46.3); Red Blood Count 3.81 M/uL (3.93-5.22); White Blood Count 14.28 K/ul (4.8-10.8)
[2021-12-04 07:42] LABS: BUN Creatinine Ratio 21.7 (10-20); Calcium 9.4 mg/dl (8.5-10.1); Creatinine Clr Calc Pharmacy 63.7 ml/min; Est GFR (African American) 82.4 ml/min; Est GFR (Non-African American) 71.1 ml/min; Potassium 3.9 mmol/L (3.5-5.1)
[2021-12-04] MEDS: DOCUSATE SODIUM 100 MG CAP PO SCH (08:06)
[2021-12-04] MEDS: ASPIRIN 81 MG ECTAB PO SCH (08:06)
[2021-12-04] MEDS ORDERED: MULTIVITAMIN TAB PO SCH (09:00)
[2021-12-04] MEDS ORDERED: CeleBREX 200 MG CAP PO SCH (09:00)
[2021-12-04] MEDS ORDERED: CHOLECALCIFEROL 1,000 UNITS 25 MCG TAB PO SCH (09:00)
--- NOTE | 2021-12-04 09:18 | Orthopedic Progress Note ---
Date of Service December 04, 2021 Assessment & Plan (1) Arthritis of right knee: Plan: Postop day 1 status post right total knee arthroplasty PT/OT protocols. Weightbearing as tolerated. DVT prophylaxis-aspirin p.o. twice daily, SCDs, JIMY cole. Pain management as written. Leukocytosis-patient is currently asymptomatic. Likely secondary to preoperative steroids and or surgical stress. DC planning-patient is planning for outpatient PT upon discharge. If she is progressing with her physical therapy today and the remaining with good pain control, possible discharge to home today. Admission and Anticipated Discharge Date Admission Date: December 03, 2021 Subjective Postop day 1 Patient sitting up in bed awake and alert. No complaints this morning. Pain is controlled. Denies shortness of breath, chest pain, lightheadedness. Physical Exam Physical Exam: Dressings are clean, dry, and intact. Calves are soft nontender. Neurovascular intact. Toes are mobile. She has good dorsiflexion and plantarflexion of the right foot. She had 50 mL of drainage from her Hemovac from the previous shift. Results & Data ([facility]) Vital Signs (Past 12 Hours) Vital Signs Temp Pulse Resp BP Pulse Ox O2 Del Method 12/04/21 07:31 36.6 C 75 18 116/75 95 Room Air 12/04/21 03:25 36.7 C 77 16 124/85 95 Laboratory Results Laboratory Results WBC 14.28 K/ul (4.8-10.8) H 12/04/21 06:03 RBC 3.81 M/uL (3.93-5.22) L 12/04/21 06:03 Hgb 11.8 g/dl (12.0-16.0) L 12/04/21 06:03 Hct 34.6 % (34.1-44.9) 12/04/21 06:03 MCV 90.8 fL (80.0-100.0) 12/04/21 06:03 MCH 31.0 pg (25.0-34.0) 12/04/21 06:03 MCHC 34.1 g/dL (32.0-36.0) 12/04/21 06:03 RDW Std Deviation 37.1 fL (36.4-46.3) 12/04/21 06:03 RDW Coeff of Jaky 11.2 % (11.5-14.5) L 12/04/21 06:03 Plt Count 372 K/uL (130-400) 12/04/21 06:03 MPV 9.6 fL (9.4-12.3) 12/04/21 06:03 PT 11.1 Seconds (9.0-12.0) 12/03/21 07:33 INR 1.0 (0.9-1.1) 12/03/21 07:33 APTT 30.3 Seconds (21.0-31.0) 12/03/21 07:33 PTT Ratio 1.1 12/03/21 07:33 Sodium 138 mmol/L (136-145) 12/04/21 06:03 Potassium 3.9 mmol/L (3.5-5.1) 12/04/21 06:03 Chloride 106 mmol/L (98-107) 12/04/21 06:03 Carbon Dioxide 26 mmol/L (21-32) 12/04/21 06:03 Anion Gap 6 (3-11) 12/04/21 06:03 BUN 20 mg/dl (6-23) 12/04/21 06:03 Creatinine 0.92 mg/dl (0.6-1.2) 12/04/21 06:03 Est Cr Clr Drug Dosing 63.7 ml/min 12/04/21 06:03 Est GFR ( Amer) 82.4 ml/min 12/04/21 06:03 Est GFR (Non-Af Amer) 71.1 ml/min 12/04/21 06:03 BUN/Creatinine Ratio 21.7 (10-20) H 12/04/21 06:03 Glucose 133 mg/dl (70-99(Fasting)) H 12/04/21 06:03 Calcium 9.4 mg/dl (8.5-10.1) 12/04/21 06:03 Urine Color Yellow 12/03/21 Unknown Urine Appearance Cloudy (Clear) A 12/03/21 Unknown Urine pH 5.5 (4.5-7.5) 12/03/21 Unknown Ur Specific Anderson 1.023 (1.000-1.030) 12/03/21 Unknown Urine Protein Trace (Negative) H 12/03/21 Unknown Urine Glucose (UA) Negative (Negative) 12/03/21 Unknown Urine Ketones Negative (Negative) 12/03/21 Unknown Urine Blood 2+ (Negative) H 12/03/21 Unknown Urine Nitrite Negative (Negative) 12/03/21 Unknown Urine Bilirubin Negative (Negative) 12/03/21 Unknown Urine Urobilinogen Negative (Negative) 12/03/21 Unknown Ur Leukocyte Esterase 3+ (Negative) H 12/03/21 Unknown Urine WBC (Auto) >30 /hpf (0-5) H 12/03/21 Unknown Urine RBC (Auto) >30 /hpf (0-4) H 12/03/21 Unknown U Hyaline Cast (Auto) 10-30 /lpf (0-5) H 12/03/21 Unknown U Epithel Cells (Auto) >30 /lpf (0-5) H 12/03/21 Unknown Urine Bacteria (Auto) 2+ (Negative) H 12/03/21 Unknown SARS-CoV-2, RNA, NAAT NEGATIVE (NEGATIVE) 12/03/21 07:30 Blood Type O Positive 12/03/21 07:33 Antibody Screen NEGATIVE 12/03/21 07:33 Impressions Knee X-Ray 12/03/21 11:50 XR knee RT 1 or 2V routine CLINICAL HISTORY: Postoperative evaluation. COMPARISON: None FINDINGS: Alignment of the total right knee arthroplasty is anatomic. No periprosthetic fracture or unexpected radiopaque foreign body. Surgical drains are in place. IMPRESSION: Expected findings following total right knee arthroplasty. ACT 112: Negative or not required by law. Electronically signed by: Mitesh Correa M.D. 12/03/2021 1:34 PM
--- NOTE | 2021-12-05 14:06 | Discharge Summary ---
Date of Service date of surgery: December 04, 2021 date of admission: 12-03-21 Admission HPI Per Admitting Provider Torie is a 51 year old who complains of right knee pain, presents for pre-op evaluation prior to a right total knee replacement by Dr King at [facility]. she complains of pain, decreased range of motion and stiffness in her right knee. Currently the patient states that the symptoms are moderate-severe and is described as aching, sharp and throbbing, rated as 6/10. Her symptoms are aggravated by ascending stairs, daily activities, first steps while awake walking. Prior NSAIDs include Mobic and IBU. she has been treated with previous Durolane (visco) injections in the past without much relief. she has had Pt and sometimes uses a knee brace. she underwent a left TKA in August 2021. Principal Diagnosis right knee arthritis Discharge Exam Musculoskeletal Right knee: NVDI, calf SNT, negative carolin sign. DP palpable, able to wiggle toes/ankle movement without difficulty. BRENNAN dressing clean dry and intact. expected post-operative bruising noted. Discharge Data Allergies Allergy/AdvReac Type Severity Reaction Status Date / Time cholecalciferol (vitamin D3) Allergy Mild Hives Verified 12/03/21 07:35 Procedures Performed Operation Date: 12/03/21 09:35 Actual Procedures p Right Total Knee Arthroplasty(Right) - Albert King DO Ordered Studies 12/03/21 05:00 US - OR guided needle placemen Routine Hospital Course (1) Arthritis of right knee: Postop day 1 status post right total knee arthroplasty PT/OT protocols. Weightbearing as tolerated. DVT prophylaxis-aspirin p.o. twice daily, SCDs, JIMY cole. Pain management as written. Leukocytosis-patient is currently asymptomatic. Likely secondary to preoperative steroids and or surgical stress. DC planning-patient is planning for outpatient PT upon discharge. If she is progressing with her physical therapy today and the remaining with good pain control, possible discharge to home today. Total Time Total Time Spent Total Time Spent (In Minutes): 20 Discharge Plan Discharge Items Patient Disposition: Home - Self-Care Reason For Visit: Right Knee Osteoarthritis Discharge Diagnosis: RIGHT TOTAL KNEE REPLACEMENT Activity: Per Instructions section Weightbearing: Right weightbearing Weightbearing Comment: WBAT WITH WALKER Non-emergency contact: Surgeon Call non-emergency contact if: you have any medication questions, your temperature is above 101, your wound has increased redness, your wound has increased drainage and your wound pain has increased Follow-up/Referrals: Albert King, [Surgeon] - (Follow-up with Dr. King in 2 weeks from the day of your surgery for your first postoperative visit.) Halima Oneil PA-C [Primary Care Provider] - Diet: Regular Addtl Attending Provider Instructions: ACTIVITY RECOMMENDATIONS: SELF CARE INSTRUCTIONS AFTER TOTAL KNEE REPLACEMENT A. You may need to continue a physical therapy program after discharge from the hospital. There are several options available to you. Your doctor will assist you in selecting the best one for you. 1. An out-patient facility 2 to 3 times a week for therapy or home therapy. 2. Continue working on all exercises taught to you in the hospital. Your goals should be to increase bending of your knee to 90 degrees and beyond and to fully straighten your knee. B. You may progress at your own pace from walking with a walker or crutches to a cane; then to no assistive devices. C. Make walking a part of your daily routine. Be up as much as comfortable with rest periods throughout the day. Rest with leg elevation is very important. Use the ice wrap frequently for the first 3-4 weeks. D. There are no restrictions on activities. 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 E. Wear the long elastic stockings (JIMY hose) 20 hours a day for 2 weeks after surgery. They can be removed several times a day for laundering and for a bath. F. You may shower, no tub baths until cleared by your doctor. SPECIAL CARE INSTRUCTIONS: VERY IMPORTANT TO READ AND REVIEW A. There are a few signs you need to watch for after you are home. Call [facility] if you notice any of the followin. Increased severe knee pain. Some pain is expected especially when you exercise. 2. Increased swelling in your leg or knee; pain or swelling of the calf muscle in either lower leg. 3. Any fluid drainage from the incision. 4. Shortness of breath or chest pain. B. Please call [facility] at if you have any concerns or questions about your operation or recovery. The doctor or his nurse will return your call promptly. C. You must take antibiotics before dental work, bladder, bowel or other surgery. Your doctor will provide you with a permanent care to carry describing this precaution. IMPORTANT: * REMEMBER TO TAKE ASPIRIN, 81 MG, TWICE DAILY FOR 4 WEEKS UNLESS OTHERWISE DIRECTED. THIS IS YOUR BLOOD THINNER. * HIGH RISK PATIENTS MAY BE PRESCRIBED A STRONGER BLOOD THINNER. THIS WILL BE PROVIDED AT DISCHARGE. * CALL IF INCREASED PAIN, REDNESS, DRAINAGE OR FEVER GREATER THAT 101. * WEAR JIMY HOSE 20 HOURS PER DAY FOR 2 WEEKS. * BRENNAN Dressing- This is a large suction dressing covering your incision. This will help pull any excess drainage from the wound and allow your incision to heal properly. You may shower with this if you can keep the unit outside of the shower. If any bleeding or leakage is noted please call your doctor's office. This will remain on your incision for 7 days and then should be removed. This can be done yourself or by the home nursing staff if applicable. The entire unit is disposable once removed. Once removed, keep incision clean and dry. If redness or drainage is noted, please call your surgeon. ONCE BRENNAN IS REMOVED, FOLLOW THESE INSTRUCTIONS: DERMABOND Prineo- This is a mesh tape dressing that is covered with glue. It should remain in place until the incision is properly healed, usually 10-14 days. This dressing is designed to naturally slough off. You may trim the excess mesh tape as it peels off. Incision may be briefly wet in a shower. Dry immediately by blotting with a clean, dry towel. Do not bath or swim until instructed by your doctor. Do not scratch, rub, or pick at the dressing. Do not apply any topical ointments or lotions until dressing is completely removed and/or instructed by your doctor. There may be a small piece of suture material at one end of your incision. Do not pull or trim this. If it is bothersome or catching on clothing, you may cover it with a band-aid. IF INCISION IS LEAKING THROUGH DRESSING, CALL THE OFFICE . FOLLOW UP VISIT: If appointment is not already scheduled: Please call [facility] to make a follow-up appointment for 2 weeks after your surgery at . Pending Studies at Discharge: No Stand-Alone Forms: My [facility] [employer], Smoking Cessation Medications and DC Order Prescriptions: New acetaminophen [Tylenol Extra Strength] 500 mg Tablet 1,000 mg PO Q8 14 Days Qty: 84 0RF celecoxib [Celebrex] 200 mg Capsule 200 mg PO BID 14 Days Qty: 28 0RF aspirin 81 mg Tablet,Delayed Release (Dr/Ec) 81 mg PO BID 30 Days Qty: 60 0RF polyethylene glycol 3350 [Miralax] 17 gram powder in packet 17 g PO DAILY PRN (Reason: constipation) Qty: 5 0RF cefadroxil 500 mg capsule 500 mg PO BID Qty: 28 1RF oxycodone 5 mg tablet 5 mg PO Q4H MDD 6 PRN (Reason: pain) Qty: 30 0RF Continued omeprazole 20 mg Tablet,Delayed Release (Dr/Ec) 20 mg PO QAM cholecalciferol (vitamin D3) [Vitamin D3] 50 mcg (2,000 unit) Tablet 50 mcg PO QAM Discharge Orders: Discharge Order (Routine); Ordered 12/04/21 Ordered By: Khai Pandya Admission Data Admit Date/Time: 12/03/21 11:50 Attending Provider: Albert Knig Admit Provider: Albert King Primary Care Provider: Halima Oneil Other Interventions: Discharge Summary Assessment (RN) Last Done: 12/04/21 13:14
== END 2021-12-04 14:07 | disposition home or self-care (01) ==
LOC: PACUINP 07:09 → ASU 07:09 → 3E 14:39
DX: Z79.899 Other long term (current) drug therapy; Z87.891 Personal history of nicotine dependence; Z68.32 Body mass index [BMI] 32.0-32.9, adult; M17.11 Unilateral primary osteoarthritis, right knee; E66.9 Obesity, unspecified